=== PATIENT | female | born 1980 | race Caucasian/White ===

== ENCOUNTER 2023-09-09 10:53 | Emergency (ER) | payer BC, MEDICAID ==
[~2023-09-09] VITALS: Ht 167.6 cm; Wt 120.0 kg
[~2023-09-09 10:53] MED LIST: LITH300C PO
[2023-09-09 11:57] LABS: URINE HCG NEGATIVE (NEG)
[2023-09-09 12:16] LABS: URINE AMPHETAMINE SCREEN NEGATIVE (Neg); URINE BARBITUATE SCREEN NEGATIVE (Neg); URINE BENZODIAZEPINES SCREEN NEGATIVE (Neg); URINE CANNABINOID SCREEN POSITIVE (Neg); URINE COCAINE SCREEN NEGATIVE (Neg); URINE METHADONE SCREEN NEGATIVE (Neg); URINE OPIATE SCREEN NEGATIVE (Neg); URINE PHENCYCLIDINE SCREEN NEGATIVE (Neg)
[2023-09-09 12:57] LABS: BASOPHILS # (AUTO) 0.1 X10'3 (0-0.2); BASOPHILS % (AUTO) 0.4 % (0-1); EOSINOPHILS # (AUTO) 0.1 X10'3 (0-0.9); EOSINOPHILS % (AUTO) 0.6 % (0-6); HEMATOCRIT 44.2 % (35.0-45.0); HEMOGLOBIN 15.4 g/dl (12.0-16.0); LYMPHOCYTES # (AUTO) 3.8 X10'3 (1.1-4.8); LYMPHOCYTES % (AUTO) 23.4 % (21-51); MEAN CORPUSCULAR HEMOGLOBIN 32.7 PG (27.0-31.0); MEAN CORPUSCULAR HGB CONC 34.8 g/dL (33.0-36.5); MEAN CORPUSCULAR VOLUME 93.9 FL (78-98); MEAN PLATELET VOLUME 7.1 FL (7.4-10.4); MONOCYTES # (AUTO) 1.1 X10'3 (0-0.9); MONOCYTES % (AUTO) 6.6 % (2-12); NEUTROPHILS # (AUTO) 11.2 X10'3 (1.8-7.7); PLATELET COUNT 325 X10'3 (140-440); RED BLOOD COUNT 4.71 X10'6 (4.20-5.60); RED CELL DISTRIBUTION WIDTH 13.2 % (11.5-14.5); WHITE BLOOD COUNT 16.3 X10'3 (4.5-11.0)
[2023-09-09 14:00] LABS: ALBUMIN 3.5 G/DL (3.4-5.0); ANION GAP 10 (8-16); BLOOD UREA NITROGEN 11 MG/DL (7-18); BUN/CREATININE RATIO 13.8 (10.0-20.0); CALCIUM 8.5 MG/DL (8.5-10.1); CHLORIDE 105 MMOL/L (99-107); ETHANOL < 10 MG/DL (<10); GLUCOSE 87 MG/DL (70-104); POTASSIUM 4.1 MMOL/L (3.5-5.1); SODIUM 137 MMOL/L (135-145); TOTAL CARBON DIOXIDE 21.8 MMOL/L (24-32); eCRCL 83 ML/MIN; eGFR 78 ML/MIN
[2023-09-09 14:38] LABS: BILIRUBIN,URINE NEGATIVE (Neg); CLARITY,URINE SLIGHTLY CLOUDY (Clear); COLOR,URINE STRAW (Yellow); GLUCOSE, URINE NEGATIVE (Neg); KETONES,URINE NEGATIVE (Neg); LEUKOCYTE ESTERASE ,URINE NEGATIVE (Neg); NITRITES, URINE NEGATIVE (Neg); OCCULT BLOOD,URINE TRACE-INTACT (Neg); PROTEIN,URINE NEGATIVE (Neg); UROBILINOGEN,URINE 0.2 E.U/dL (0.2-1.0)
[2023-09-09 14:43] LABS: UA COLLECTION TYPE VOIDED
[2023-09-09 14:44] LABS: BACTERIA,URINE 4+ /HPF (Neg); RBC,URINE NONE SEEN /HPF (0-2); SQUAMOUS EPITHELIAL CELL,UR NONE SEEN /LPF (FEW); WBC,URINE 0-4 /HPF (0-4)
[2023-09-09] MEDS ORDERED: CARI3CAP PO (15:15)
[2023-09-09] MEDS: OLANZapine 5mg rapidly disint. tablet PO SCH (20:00)
[2023-09-09] MEDS ORDERED: OLANZapine 5mg rapidly disint. tablet PO SCH (20:00)
[2023-09-10 05:55] VITALS: BP 112/64; PULSE 73; RESP 15; TEMP 98.5; O2SAT 97
[2023-09-10] MEDS: CARIPRAZINE 1.5 MG CAPSULE PO SCH (08:06)
== END 2023-09-10 12:06 ==
LOC: ER 10:54
DX: F30.9 Manic episode, unspecified (principal); Z20.822 Contact with and (suspected) exposure to COVID-19; F29 Unspecified psychosis not due to a substance or known physiological condition; Z79.899 Other long term (current) drug therapy
CPT/HCPCS: 36415; 80048; 80305; 80320; 81001; 81025; 85025; 87077; 87088; 87186; 87811; 99285